=== PATIENT | female | born 1990 | race American Indian/Alaskan Native ===

== ENCOUNTER 2021-06-07 11:57 | Emergency (ER) | payer BC, MEDICAID ==
--- NOTE | 2021-06-07 12:08 | Emergency Department Report ---
HPI - General Chief Complaint: Upper Respiratory Infection Time Seen by Provider: 06/07/21 12:02 - HPI HPI: 30-year-old -Thai female presents to the emergency department with complaint of a few days of head congestion, mixed dry and productive cough, intermittent shortness of breath, scratchy throat. The patient says that she had Covid 1 year ago and that the symptoms are similar to when she tested positive, but not as intense. She denies any other past medical history. She denies any tobacco use. She has not taken anything for her symptoms prior to presentation today. No recent travel or sick contacts at home. ED Past Medical Hx - Surgical History Additional Surgical History: PE tubes- 2005. tonsilectomy - Social History Smoking Status: Current Some Day Smoker Substance Use Type: Marijuana - Medications Home Medications: Home Medications Medication Instructions Recorded Confirmed Last Taken Type Nitrofurantoin [place]/M-Cryst 100 mg PO Q12HR #14 capsule 01/27/15 Unknown Rx [Macrobid CAP] medroxyPROGESTERone ACETATE 5 mg PO QDAY #5 tablet 01/27/15 Unknown Rx [Provera] Albuterol Mdi (or & Nicu Only) 2 puff IH QID PRN #8.5 gram 06/07/21 Unknown Rx [ProAir HFA Inhaler] Fluticasone Furoate [Flonase 1 spray NS QDAY #1 bottle 06/07/21 Unknown Rx Sensimist] Loratadine [Claritin] 10 mg PO QDAY #10 tablet 06/07/21 Unknown Rx ED Review of Systems ROS: Stated complaint: COVID S/S Other details as noted in HPI Comment: All other systems reviewed and negative Constitutional: denies: chills, fever Eyes: denies: eye pain, vision change ENT: throat pain (Scratchy throat), congestion Respiratory: cough, shortness of breath Cardiovascular: denies: chest pain, edema Gastrointestinal: denies: abdominal pain, vomiting Genitourinary: denies: dysuria, discharge Musculoskeletal: denies: back pain, arthralgia Skin: denies: rash, lesions Neurological: denies: headache, weakness Physical Exam - Physical Exam Vital Signs: Vital Signs 06/07/21 11:59 Temperature 99.1 F Pulse Rate 89 Respiratory 18 Rate Blood Pressure 139/91 O2 Sat by Pulse 100 Oximetry Physical Exam: GENERAL: The patient is well-developed well-nourished. HENT: Normocephalic. Atraumatic. Patient has moist mucous membranes. Oropharynx is clear without tonsillar hypertrophy, erythema or exudates. EYES: Extraocular motions are intact. NECK: Supple. Trachea is midline. CHEST/LUNGS: Clear to auscultation. There is no respiratory distress noted. No tachypnea or accessory muscle use. No cough heard during examination. HEART/CARDIOVASCULAR: Regular. There is no tachycardia. There is no murmur. ABDOMEN: Abdomen is soft, nontender. Patient has normal bowel sounds. SKIN: Skin is warm and dry. NEURO: The patient is awake, alert, and oriented. The patient is cooperative. Normal speech. MUSCULOSKELETAL: There is no tenderness or deformity. There is no limitation range of motion. ED Course Vital Signs 06/07/21 11:59 Temperature 99.1 F Pulse Rate 89 Respiratory 18 Rate Blood Pressure 139/91 O2 Sat by Pulse 100 Oximetry ED Medical Decision Making - Radiology Data Radiology results: image reviewed interpreted by me: Chest x-ray does not show any acute process. There are no pleural effusions, obvious pneumonia and there is no pneumothorax. No widened mediastinum. - Medical Decision Making This patient presents to the emergency department with complaint of head congestion, scratchy throat, cough, occasional shortness of breath. She says that this was consistent with the same symptoms she had when she was diagnosed with COVID-19 about 1 year ago. Vital signs reassuring including being afebrile and no hypoxia. Chest x-ray does not show any pneumonia, pleural effusions, or any other acute process. I am unable to test the patient for COVID-19 at this time. She does appear safe for discharge home and has been instructed to seek outpatient COVID-19 testing. Overall this is most likely a nonspecific viral upper respiratory infection. She was given a prescription for Claritin, and albuterol inhaler and Flonase Sensimist. She will return to the emergency department with any worsening of her symptoms or with any acute distress. Critical Care Time: No Critical care attestation.: If time is entered above; I have spent that time in minutes in the direct care of this critically ill patient, excluding procedure time. ED Disposition Clinical Impression: Upper respiratory infection Qualifiers: URI type: unspecified viral URI Qualified Code(s): J06.9 - Acute upper respiratory infection, unspecified Disposition: 01 HOME / SELF CARE / HOMELESS Is pt being admited?: No Condition: Stable Instructions: Viral Respiratory Infection Additional Instructions: Please follow-up with a primary care physician in the next few days. Unfortunately I am unable to test you for COVID-19 [id number] at this time. I do recommend that you seek outpatient COVID-19 testing. This can be done at some primary care offices, some urgent cares, and there should be a listing of testing facilities through the [facility]. Return to the emergency department with any worsening of your symptoms, new or concerning symptoms not addressed during this current emergency department visit, or with any acute distress. Prescriptions: Loratadine [Claritin] 10 mg PO QDAY #10 tablet Fluticasone Furoate [Flonase Sensimist] 1 spray NS QDAY #1 bottle Albuterol Mdi (or & Nicu Only) [ProAir HFA Inhaler] 2 puff IH QID PRN #8.5 gram PRN Reason: Shortness Of Breath Referrals: PRIMARY CARE [Primary Care Provider] - 2-3 Days Time of Disposition: 14:09
[2021-06-07 13:05] LABS: HCG Qualitative,Urine Negative (Negative)
--- NOTE | 2021-06-07 14:05 | XRay Report ---
CHEST 2 VIEWS INDICATION: cough. COMPARISON: None. FINDINGS: Support devices: None. Heart: Within normal limits. Lungs/Pleura: No acute air space or interstitial disease. No significant pleural effusion. IMPRESSION: No acute findings. Signer Name: Mich Nuno MD Signed: 06/07/2021 2:01 PM Workstation Name: [employer] ([employer] [email or web address])-[id number]
[2021-06-07 14:24] VITALS: BP 127/83
== END 2021-06-07 14:25 | disposition home or self-care (01) ==
LOC: ED 11:57
DX: J06.9 Acute upper respiratory infection, unspecified (principal); F17.200 Nicotine dependence, unspecified, uncomplicated; F12.90 Cannabis use, unspecified, uncomplicated
CPT/HCPCS: 36415; 71046; 81025; 84703; 99283